=== PATIENT | male | born 1970 | race Caucasian/White ===

== ENCOUNTER 2019-08-22 11:21 | Outpatient (CLI) | payer OTHER, SELFPAY ==
[2019-08-23 23:56] LABS: COVID-19 RT-PCR UVMMC Result Negative (Negative)
== END 2019-08-22 11:41 ==
PROVIDERS: PCP Anesthesiology; Visit Provider Anesthesiology
DX: Z01.818 Encounter for other preprocedural examination (principal); Z11.59 Encounter for screening for other viral diseases
CPT/HCPCS: U0003